=== PATIENT | male | born 1975 | race Caucasian/White ===

== ENCOUNTER 2017-10-15 14:54 | Emergency (ER) | payer OTHER ==
[2017-10-15 15:03] VITALS: BP 136/89
[2017-10-15] MEDS ORDERED: BACITRACIN OINT TOP STA (15:29)
--- NOTE | 2017-10-15 15:32 | ED Physician Documentation ---
PD HPI UPPER EXT INJURY - Stated complaint Stated Complaint: R FINGER LAC - Chief complaint Chief Complaint: Laceration - History obtained from History obtained from: Patient - History of Present Illness Location: Right, Finger (ring) Type of injury: Laceration Where injury occurred: Work Timing - onset: How many hours ago (1) - Additonal information Additional information: The patient is a 41-year-old male who cut his right ring finger on a banding strap of a crate about one hour prior to arrival. He is right hand dominant. He denies any other injuries. His tetanus status is up-to-date. Review of Systems Constitutional: denies: Fever Respiratory: denies: Dyspnea Skin: reports: Laceration (s) Neurologic: denies: Focal weakness, Numbness PD PAST MEDICAL HISTORY - Past Medical History Past Medical History: No Endocrine/Autoimmune: None - Past Surgical History Past Surgical History: No - Present Medications Home Medications: Ambulatory Orders Medication Instructions Recorded Confirmed No Known Home Medications [No 10/15/17 10/15/17 Known Home Medications] - Allergies Allergies/Adverse Reactions: Allergies Allergy/AdvReac Type Severity Reaction Status Date / Time No Known Drug Allergies Allergy Verified 10/15/17 15:03 - Social History Does the pt smoke?: No Smoking Status: Never smoker Does the pt drink ETOH?: No Does the pt have substance abuse?: No - Immunizations Immunizations are current?: Yes - POLST Patient has POLST: No PD ED PE NORMAL - Vitals Vital signs reviewed: Yes (Borderline hypertension initially.) - General General: Alert and oriented X 3, Well developed/nourished - HEENT HEENT: Atraumatic - Respiratory Respiratory: No respiratory distress - Derm Derm: No rash - Extremities Extremities: Other (There is a 1 cm laceration on the dorsal radial aspect of the right ring finger. He has full flexion and extension at the DIP, PIP, and MCP joints against resistance. Distal neurovascular is intact.) - Neuro Neuro: Alert and oriented X 3, No motor deficit, No sensory deficit Results - Vitals Vitals: Oxygen O2 Source Room air Procedures - Laceration (location) Right ring finger Length in cm: 1 Wound type: Flap Neurovascular status: Sensory intact, Motor intact, Vascular intact Tendon involvement: Tendon intact Anesthesia: Lidocaine 1% Wound Preparation: Hibiclens, Irrigated copiously NS, Wound explored. No: FB identified Skin layer closure: Nylon, Interrupted, Size #-0 - enter number (5), Sutures - enter # (4) Other: Patient tolerated well, No complications, Neurovascular intact, Dressing applied, Tetanus UTD Complexity: Simple PD MEDICAL DECISION MAKING - ED course Complexity details: considered differential, d/w patient ED course: The patient's presentation is significant for a 1 cm laceration of his right ring finger. There is no evidence of tendon involvement. Treatment in the emergency department included thorough cleaning and suture repair of the wound after local anesthetic with 1% lidocaine. Antibiotic ointment and gauze dressing was applied. I discussed with him the expected course of healing, timing for suture removal. as well as potentially worrisome signs or symptoms that should prompt reevaluation in the emergency department. Departure - Departure Disposition: 01 Home, Self Care Clinical Impression: Finger laceration Qualifiers: Encounter type: initial encounter Finger: ring finger Damage to nail status: without damage Foreign body presence: without foreign body Laterality: right Qualified Code(s): S61.214A - Laceration without foreign body of right ring finger without damage to nail, initial encounter Condition: Stable Instructions: ED Laceration Hand Follow-Up: MARCIA Ruano [Provider Group] Comments: Keep the wound clean. Apply antibiotic ointment daily. Follow-up for suture removal in about 10 days. Return to the emergency department if you develop any sign of infection, or otherwise worsening symptoms. Discharge Date/Time: 10/15/17 15:55
[2017-10-15] MEDS ORDERED: BACITRACIN OINT TOP ONE (15:53)
== END 2017-10-15 15:55 | disposition home or self-care (01) ==
LOC: ED 14:54
DX: S61.214A Laceration without foreign body of right ring finger without damage to nail, initial encounter (principal); W45.8XXA Other foreign body or object entering through skin, initial encounter
CPT/HCPCS: 12001; 99282; 99283; A9270